=== PATIENT | male | born 1990 | race Caucasian/White ===

== ENCOUNTER 2017-02-06 05:41 | Inpatient (IN) | payer BC ==
[~2017-02-06] VITALS: Ht 185.4 cm; Wt 107.0 kg
[~2017-02-06 05:41] MED LIST: ARYMO ER15 MG PO; ELAVIL25 MG PO; MEDROL DOSEPAK4 MG PO; NEURONTIN300 MG PO; PERCOCET 10/1 TABLET PO; SINGULAIR10 MG PO; VENTOLIN HFA18 GM IH
[2017-02-06 06:22] VITALS: BP 130/72
[2017-02-06 15:09] VITALS: BP 134/73
[2017-02-06 15:49] VITALS: BP 129/62
[2017-02-06 19:31] VITALS: BP 138/77
[2017-02-06 23:37] VITALS: BP 148/71
[2017-02-07 03:50] VITALS: BP 132/66
[2017-02-07 07:41] VITALS: BP 126/63
[2017-02-07 16:28] VITALS: BP 142/75
[2017-02-07] MEDS ORDERED: OXYCODONE HCL15 MG PO (16:32)
[2017-02-07] MEDS ORDERED: MS CONTIN,ORAMO15 M1 PO (16:32)
[2017-02-07 19:53] VITALS: BP 143/67
[2017-02-07 23:15] VITALS: BP 164/80
[2017-02-08 04:03] VITALS: BP 128/71
[2017-02-08] MEDS ORDERED: ADULT FOLDING1 EACH MC (08:01)
[2017-02-08 08:06] VITALS: BP 137/79
[2017-02-08] MEDS ORDERED: CYCLOBENZAPRINE10 MG PO (08:49)
[2017-02-08 11:33] VITALS: BP 116/62
[2017-02-08 16:02] VITALS: BP 137/86
[2017-02-08 19:37] VITALS: BP 135/89
[2017-02-08 23:21] VITALS: BP 125/58
[2017-02-09 07:21] VITALS: BP 141/87
== END 2017-02-09 16:07 | disposition home or self-care (01) | DRG 455 ==
LOC: 2SOUTH 05:41 → 3EAST 15:00
PROC: 0SG00K1 Fusion of Lumbar Vertebral Joint with Nonautologous Tissue Substitute, Posterior Approach, Posterior Column, Open Approach (ICD-10-PCS; principal; 2017-02-06)
PROC: 0SG00A0 Fusion of Lumbar Vertebral Joint with Interbody Fusion Device, Anterior Approach, Anterior Column, Open Approach (ICD-10-PCS; 2017-02-06)
DX: M99.03 Segmental and somatic dysfunction of lumbar region (principal); M47.896 Other spondylosis, lumbar region; M51.26 Other intervertebral disc displacement, lumbar region; G89.29 Other chronic pain; M54.5 Low back pain; R40.0 Somnolence; G89.18 Other acute postprocedural pain; J45.909 Unspecified asthma, uncomplicated
CPT/HCPCS: 72100; 76000; 86900; 86901; 94799; 95886; 97530 GO; 97530 GP; C1713; J0131; J0330; J0690; J1100; J1170; J2250; J2405; J2930; J3010; J3370; J3480; S0020

== ENCOUNTER 2018-01-14 08:53 | Emergency (ER) | payer BC ==
[~2018-01-14] VITALS: Ht 185.4 cm; Wt 108.9 kg
[~2018-01-14 08:53] MED LIST changes: +ADULT FOLDING1 EACH MC; +CYCLOBENZAPRINE10 MG PO; +MS CONTIN,ORAMO15 M1 PO; +OXYCODONE HCL15 MG PO
[2018-01-14] MEDS ORDERED: TIZANIDINE HCL4 M1 PO (11:24)
[2018-01-14] MEDS ORDERED: GRALISE600 MG PO (11:26)
[2018-01-14] MEDS ORDERED: MOBIC7.5 MG PO (12:51)
[2018-01-14] MEDS ORDERED: FLEXERIL10 MG PO (12:51)
[2018-01-14] MEDS ORDERED: LIDODERM 5% P1 PATCH TD (12:51)
[2018-01-14 13:41] VITALS: BP 112/89
== END 2018-01-14 13:42 | disposition home or self-care (01) ==
LOC: EME 08:53
DX: M54.5 Low back pain (principal); G89.29 Other chronic pain; Z79.891 Long term (current) use of opiate analgesic; Z98.890 Other specified postprocedural states; Z98.1 Arthrodesis status
CPT/HCPCS: 72110; 99281; 99283; J1885